=== PATIENT | female | born 1965 | race Caucasian/White ===

== ENCOUNTER 2019-08-29 21:47 | Emergency (ER) | payer BC ==
[~2019-08-29] VITALS: Ht 166.4 cm; Wt 100.0 kg
[2019-08-29] MEDS ORDERED: HYDROcodone/acetaminophen 5mg/325mg tablet PO ONE (22:45)
[2019-08-29] MEDS ORDERED: HYDR-3965 PO (22:51)
--- NOTE | 2019-08-29 22:52 | NUR ---
CALLED [facility] AT 22:51 ETA IN 30 MINS
--- NOTE | 2019-08-29 23:29 | NUR ---
Yadi at bedside performing ortho orders.
[2019-08-29 23:39] VITALS: BP 151/82
== END 2019-08-29 23:43 | disposition home or self-care (01) ==
LOC: ER 21:48
DX: S93.401A Sprain of unspecified ligament of right ankle, initial encounter (principal); E03.9 Hypothyroidism, unspecified; Z98.890 Other specified postprocedural states; Z88.5 Allergy status to narcotic agent; Z79.899 Other long term (current) drug therapy; X50.1XXA Overexertion from prolonged static or awkward postures, initial encounter; Y93.01 Activity, walking, marching and hiking; Y92.89 Other specified places as the place of occurrence of the external cause; Y99.8 Other external cause status
CPT/HCPCS: 29515; 73610; 99283